=== PATIENT | male | born 1985 | race Caucasian/White ===

== ENCOUNTER → 2023-03-23 08:49 | Outpatient (BNVA) | payer OTHER, SELFPAY | PROVIDERS: Family Provider Family Medicine; PCP Family Medicine; Visit Provider Family Medicine | DX: Z13.6 Encounter for screening for cardiovascular disorders (principal); F41.9 Anxiety disorder, unspecified; I10 Essential (primary) hypertension | CPT/HCPCS: 80053; 80061 ==

== ENCOUNTER → 2025-07-31 10:42 | Outpatient (BNVA) | payer OTHER, SELFPAY | PROVIDERS: Family Provider Family Medicine; PCP Family Medicine; Visit Provider Family Medicine | DX: Z00.00 Encounter for general adult medical examination without abnormal findings (principal); I10 Essential (primary) hypertension | CPT/HCPCS: 80053; 80061 ==